=== PATIENT | female | born 1995 | race Caucasian/White ===

== ENCOUNTER 2017-01-12 12:15 | Emergency (ER) | payer MEDICAID, OTHER ==
[~2017-01-12] VITALS: Ht 165.1 cm; Wt 98.5 kg
[2017-01-12 12:19] VITALS: BP 141/82
--- NOTE | 2017-01-12 12:40 | NUR ---
21/F BIB FAMILY C/O N/V/D X 2 DAYS AGO----CAN NOT TOLERATE ANY PO'S , SEVERE N/V & ALSO LOWER BACK PAIN RADIATING TO SUPRAPUBIC, BROWN DISCHARGE. RECENT DX UTI RX CIPRO, MOTRIN,NORCO X 4 DAYS AGO AT [facility] ER. SKIN IS PINK/WARM/DRY; AAOX4 WITH EVEN AND STEADY GAIT; LUNGS CLEAR BL; HR EVEN AND REGULAR; PT DENIES ANY FEVER, CP, SOB, OR COUGH AT THIS TIME; PATIENT STATES PAIN OF 10/10 AT THIS TIME; VSS; PATIENT POSITIONED FOR COMFORT; HOB ELEVATED; BEDRAILS UP X2; BED DOWN. ER MD MADE AWARE OF PT STATUS.
[2017-01-12] MEDS ORDERED: NACL 0.9% 1,000 ML IV SCH (13:01)
[2017-01-12] MEDS ORDERED: ONDANSETRON 4 MG/2 ML VIAL IVP ONE (13:05)
--- NOTE | 2017-01-12 13:26 | NUR ---
PT WENT TO CT.
--- NOTE | 2017-01-12 13:26 | NUR ---
Antonio stahl in [facility] - 01/12/17 at 1344 by MED1 PT TO X-RAY
--- NOTE | 2017-01-12 13:33 | NUR ---
US AT BEDSIDE.
--- NOTE | 2017-01-12 13:43 | NUR ---
PT STS PAIN 6/10 AT THIS TIME.
[2017-01-12 14:04] LABS: BASOPHILS # (AUTO) 0.3 K/uL (0.00-0.22); EOSINOPHILS # (AUTO) 0.1 K/uL (0-0.4); HEMATOCRIT 41.8 % (36-48); HEMOGLOBIN 13.5 g/dL (12.0-16.0); LYMPHOCYTES # (AUTO) 2.5 K/uL (2.5-16.5); MEAN CORPUSCULAR HEMOGLOBIN 26 pg (27-31); MEAN CORPUSCULAR HGB CONC 32 g/dL (33-37); MEAN CORPUSCULAR VOLUME 82 fL (80-94); MONOCYTES # (AUTO) 0.5 K/uL (0.8-1.0); NEUTROPHILS # (AUTO) 8.6 K/uL (1.8-7.7); PLATELET COUNT (AUTO) 346 K/uL (140-450); RED BLOOD CELL COUNT(AUTO) 5.11 MIL/uL (4.20-5.40)
--- NOTE | 2017-01-12 14:14 | NUR ---
Patient appears to be resting comfortably in bed. Vital Signs within normal limits. Respirations even and unlabored.WILL CONTINUE TO MONITOR.
[2017-01-12 14:22] LABS: ANION GAP 14.4 (8-16); CARBON DIOXIDE 24.4 mmol/L (21-32); CREATININE 1.3 mg/dL (0.6-1.3); POTASSIUM 3.8 mmol/L (3.5-5.1)
[2017-01-12 14:27] LABS: ALBUMIN 3.8 g/dL (3.4-5.0); TOTAL BILIRUBIN 0.6 mg/dL (0.0-1.0)
[2017-01-12 15:19] LABS: APPEARANCE,URINE HAZY (CLEAR); BILIRUBIN,URINE NEGATIVE (NEGATIVE); BLOOD, URINE 2+ (NEGATIVE); COLOR,URINE YELLOW (YELLOW); LEUKOCYTE ESTERASE ,URINE 1+ (NEGATIVE); NITRITE, URINE NEGATIVE (NEGATIVE); UGLUCOSE NEGATIVE (NEGATIVE)
--- NOTE | 2017-01-12 15:50 | NUR ---
PT STS PAIN 3/10 AT THIS TIME.
--- NOTE | 2017-01-12 16:00 | NUR ---
IV removed, catheter intact and site benign. Applied folded 4x4 gauze and tape to stop bleeding.
[2017-01-12 16:05] VITALS: BP 119/71
--- NOTE | 2017-01-12 16:05 | NUR ---
Patient discharged with v/s stable. Written and verbal after care instructions given and explained. Patient alert, oriented and verbalized understanding of instructions. Ambulatory with steady gait. All questions addressed prior to discharge. ID band removed. Patient advised to follow up with PMD. Rx of ZOFRAN ODT & IMODIUM A D given. Patient educated on indication of medication including possible reaction and side effects. Opportunity to ask questions provided and answered.
== END 2017-01-12 16:05 | disposition home or self-care (01) ==
LOC: MED 12:15
DX: K52.9 Noninfective gastroenteritis and colitis, unspecified (principal); N39.0 Urinary tract infection, site not specified; Z91.040 Latex allergy status
CPT/HCPCS: 36415; 74176; 76705; 80053; 81001; 81025; 82150; 83690; 84703; 85025; 87086; 96361; 96374; 99285; J2405; J7030; Q0092

== ENCOUNTER 2017-01-18 14:28 | Emergency (ER) | payer OTHER ==
[~2017-01-18] VITALS: Ht 152.4 cm; Wt 97.6 kg
[2017-01-18 14:34] VITALS: BP 128/91
--- NOTE | 2017-01-18 14:38 | NUR ---
Patient ambulated to bed 3. RN evaluating patient at bedside.
--- NOTE | 2017-01-18 14:45 | NUR ---
PATIENT BIB SELF C/O VAGINAL BLEEDING X 3 DAYS, WITH "MEDIUM CLOT-LIKE BALL" DISCHARGED X THIS MORNING.PT STATES THE CLOT IS HARD AND SINCE IT CAME OFF SHE STOPS BLEEDING. PT ALSO STATES SHE FEELS DIZZY AND HAS BLURRY OF VISSION;DENIES N/V/D; SKIN IS PINK/WARM/DRY; AAOX4 WITH EVEN AND STEADY GAIT; LUNGS CLEAR BL; HR EVEN AND REGULAR; PT DENIES ANY FEVER, CP, SOB, OR COUGH AT THIS TIME; PATIENT STATES PAIN OF 8/10 AT THIS TIME;PATIENT POSITIONED FOR COMFORT; HOB ELEVATED; BEDRAILS UP X2; ALL MONITORS IN PLACED;BED DOWN. ER MD MADE AWARE OF PT STATUS.
--- NOTE | 2017-01-18 14:50 | NUR ---
Dr. Vail evaluating patient at bedside.
--- NOTE | 2017-01-18 15:13 | NUR ---
Pelvic exam performed by DR LOPEZ with TERESA CODY at bedside for entire examination. Patient tolerated procedure well. Patient assisted to position of comfort after examination.
[2017-01-18 15:21] LABS: BASOPHILS # (AUTO) 0.3 K/uL (0.00-0.22); BASOPHILS % (AUTO) 2.8 % (0.0-2.0); EOSINOPHILS # (AUTO) 0.1 K/uL (0-0.4); EOSINOPHILS % (AUTO) 1.2 % (0.0-4.0); HEMATOCRIT 40.3 % (36-48); LYMPHOCYTES # (AUTO) 2.4 K/uL (2.5-16.5); LYMPHOCYTES % (AUTO) 25.1 % (20.5-51.1); MEAN CORPUSCULAR HEMOGLOBIN 26 pg (27-31); MEAN CORPUSCULAR HGB CONC 32 g/dL (33-37); MEAN CORPUSCULAR VOLUME 81 fL (80-94); MONOCYTES # (AUTO) 0.6 K/uL (0.8-1.0); MONOCYTES % (AUTO) 6.2 % (1.7-9.3); NEUTROPHILS % (AUTO) 64.7 % (42.2-75.2); PLATELET COUNT (AUTO) 346 K/uL (140-450); RED BLOOD CELL COUNT(AUTO) 4.95 MIL/uL (4.20-5.40); RED CELL DISTRIBUTION WIDTH 12.9 % (11.6-13.7); WHITE BLOOD COUNT (AUTO) 9.4 K/uL (4.8-10.8)
[2017-01-18 15:33] LABS: APPEARANCE,URINE CLEAR (CLEAR); BILIRUBIN,URINE NEGATIVE (NEGATIVE); BLOOD, URINE 3+ (NEGATIVE); COLOR,URINE YELLOW (YELLOW); LEUKOCYTE ESTERASE ,URINE NEGATIVE (NEGATIVE); NITRITE, URINE NEGATIVE (NEGATIVE); PH,URINE 6.5 (5.0-9.0); UGLUCOSE NEGATIVE (NEGATIVE)
[2017-01-18 15:34] LABS: RBC,URINE 80-100 /HPF (0-5); WBC,URINE 0-5 (RARE) /HPF (0-5)
[2017-01-18 15:34] LABS: ANION GAP 15.3 (8-16); CARBON DIOXIDE 24.1 mmol/L (21-32); POTASSIUM 3.4 mmol/L (3.5-5.1)
--- NOTE | 2017-01-18 15:41 | NUR ---
pt resting on bed; no acute distress noted;will continue to monitor pt.
--- NOTE | 2017-01-18 16:20 | NUR ---
US at bedside.
--- NOTE | 2017-01-18 16:33 | NUR ---
pt went to the restroom.
[2017-01-18 17:29] VITALS: BP 111/69
--- NOTE | 2017-01-18 17:29 | NUR ---
Patient discharged with v/s stable. Written and verbal after care instructions given and explained. Patient verbalized understanding. Ambulatory with steady gait. All questions addressed prior to discharge. Advised to follow up with PMD.
== END 2017-01-18 17:29 | disposition home or self-care (01) ==
LOC: MED 14:28
DX: N93.8 Other specified abnormal uterine and vaginal bleeding (principal); R10.30 Lower abdominal pain, unspecified; Z91.040 Latex allergy status
CPT/HCPCS: 36415; 76856; 80048; 81001; 81025; 84702; 85025; 99285

== ENCOUNTER 2017-07-22 14:48 | Emergency (ER) | payer OTHER ==
[~2017-07-22] VITALS: Ht 162.6 cm; Wt 101.6 kg
[2017-07-22 14:51] VITALS: BP_SYST 124; BP_SYST 138; BP_DIAS 119; BP_DIAS 79
--- NOTE | 2017-07-22 15:29 | NUR ---
PATIENT AMBULATED TO BED 3 AT THIS TIME.
--- NOTE | 2017-07-22 16:18 | NUR ---
PATIENT PRESENTS TO ED WITH 3 days of headache occipital region and mid to lower back pain . PT STATES . DENIES N/V/D; SKIN IS PINK/WARM/DRY; AAOX4 WITH EVEN AND STEADY GAIT; LUNGS CLEAR BL; HR EVEN AND REGULAR; PT DENIES ANY FEVER, CP, SOB, OR COUGH AT THIS TIME; PATIENT STATES PAIN OF 8/10 AT THIS TIME; VSS; PATIENT POSITIONED FOR COMFORT; HOB ELEVATED; BEDRAILS UP X2; BED DOWN. ER MD MADE AWARE OF PT STATUS.
[2017-07-22] MEDS ORDERED: HYDROmorphone 1 MG/ML AMP IM ONE (17:25)
[2017-07-22] MEDS ORDERED: KETOROLAC 60 MG/2 ML VIAL IM ONE (17:25)
[2017-07-22] MEDS ORDERED: HYDROmorphone PFS 2 MG/ML SYR ONE (17:51)
--- NOTE | 2017-07-22 17:56 | NUR ---
C/O 01/31 BACK PAIN AND HEADACHE--MEDICATED WRITTEN WILL CONTINUE TO OBSERVE FOR PAIN CONTROL
[2017-07-22 18:36] VITALS: BP 131/78
--- NOTE | 2017-07-22 18:36 | NUR ---
Patient discharged with v/s stable. Written and verbal after care instructions given and explained. Patient alert, oriented and verbalized understanding of instructions. Ambulatory with steady gait. All questions addressed prior to discharge. ID band removed. Patient advised to follow up with PMD. Rx of FIORICET given. Patient educated on indication of medication including possible reaction and side effects. Opportunity to ask questions provided and answered.
[2017-07-22 19:51] LABS: BARBITURATE, URINE POS. ng/ml (NEG <=200); BENZODIAZEPINE, URINE NEG. ng/mL (NEG <=200); CANNABINOID, URINE NEG. ng/mL (NEG <=50); COCAINE, URINE NEG. ng/mL (NEG <=300); OPIATE, URINE NEG. ng/mL (NEG <=2000); PHENCYCLIDINE SCREEN,URINE NEG. ng/mL (NEG <=25)
== END 2017-07-22 18:36 | disposition home or self-care (01) ==
LOC: MED 14:48
DX: G44.209 Tension-type headache, unspecified, not intractable (principal); Z91.040 Latex allergy status
CPT/HCPCS: 70450; 80305; 81002; 81025; 96372; 99285; J1170; J1885

== ENCOUNTER 2017-12-06 18:55 | Emergency (ER) | payer MEDICAID, OTHER ==
[~2017-12-06] VITALS: Ht 162.6 cm; Wt 101.8 kg
[2017-12-06 19:05] VITALS: BP 128/66
--- NOTE | 2017-12-06 19:21 | NUR ---
22/F CAME IN ED, C/O 03/02 SHARP, CONSTANT LOWER BACK PAIN, RADIATING TO PELVIC/LOWER ABD, X3 DAYS. PT REPORTS ROMAN. PT REPORTS TAKING TYLENOL WITH NO RELIEF. PT DENIES TRAUMA. PT DENIES N/V/D; SKIN IS INTACT, PINK/WARM/DRY; AAOX4, PERRL, WITH EVEN AND STEADY GAIT; LUNGS CLEAR BL, BREATHING UNLABORED; HR EVEN AND REGULAR, BL PERIPHERAL PULSES PRESENT; BS ACTIVE X4, TENDERNESS TO PALPATION; PT DENIES ANY FEVER, CP, SOB, OR COUGH AT THIS TIME; VSS; PATIENT POSITIONED FOR COMFORT; HOB ELEVATED; BEDRAILS UP X2; BED DOWN. ER MD MADE AWARE
[2017-12-06] MEDS ORDERED: KETOROLAC 30 MG/ML VIAL IM ONE (19:50)
--- NOTE | 2017-12-06 20:00 | NUR ---
Pt taken to CT
[2017-12-06 20:29] LABS: BASOPHILS % (AUTO) 0.2 % (0.0-2.0); EOSINOPHILS # (AUTO) 0.1 K/uL (0-0.4); EOSINOPHILS % (AUTO) 0.7 % (0.0-4.0); HEMATOCRIT 41.1 % (36-48); HEMOGLOBIN 12.9 g/dL (12.0-16.0); LYMPHOCYTES # (AUTO) 2.8 K/uL (2.5-16.5); MEAN CORPUSCULAR HEMOGLOBIN 26 pg (27-31); MEAN CORPUSCULAR HGB CONC 31 g/dL (33-37); MEAN CORPUSCULAR VOLUME 81.8 fL (80-94); MONOCYTES # (AUTO) 0.6 K/uL (0.8-1.0); MONOCYTES % (AUTO) 5.7 % (1.7-9.3); NEUTROPHILS # (AUTO) 6.6 K/uL (1.8-7.7); NEUTROPHILS % (AUTO) 65.4 % (42.2-75.2); PLATELET COUNT (AUTO) 360 K/uL (140-450); RED BLOOD CELL COUNT(AUTO) 5.03 MIL/uL (4.20-5.40); RED CELL DISTRIBUTION WIDTH 14.3 % (11.6-13.7); WHITE BLOOD COUNT (AUTO) 10.2 K/uL (4.8-10.8)
[2017-12-06 20:56] VITALS: BP 128/66
--- NOTE | 2017-12-06 20:57 | NUR ---
Patient discharged with v/s stable. Written and verbal after care instructions given and explained. Patient alert, oriented and verbalized understanding of instructions. Ambulatory with steady gait. All questions addressed prior to discharge. ID band removed. Patient advised to follow up with PMD. Rx of Naproxen and Mccloud given. Patient educated on indication of medication including possible reaction and side effects. Opportunity to ask questions provided and answered. Patient given referral for EMERG[employer]Y [employer]ETER[employer]IST[employer] ALEX Kim.
== END 2017-12-06 20:57 | disposition home or self-care (01) ==
LOC: MED 18:55
DX: R10.2 Pelvic and perineal pain (principal); M54.5 Low back pain; R51 Headache; Z91.040 Latex allergy status
CPT/HCPCS: 36415; 74176; 81002; 81025; 85025; 96372; 99285; J1885

== ENCOUNTER 2018-02-16 11:53 | Emergency (ER) | payer MEDICAID, OTHER ==
[~2018-02-16] VITALS: Ht 162.6 cm; Wt 101.6 kg
[2018-02-16 11:59] VITALS: BP 136/85
[2018-02-16] MEDS: LIDOCAINE 1% 500 MG/50 ML VIAL INJ SCH (13:31)
[2018-02-16] MEDS: IBUPROFEN 400 MG TAB PO ONE (13:31)
[2018-02-16 14:21] VITALS: BP 132/84
== END 2018-02-16 14:21 | disposition home or self-care (01) ==
LOC: MED 11:53
DX: M54.6 Pain in thoracic spine (principal); R10.32 Left lower quadrant pain; R25.2 Cramp and spasm; Z91.040 Latex allergy status
CPT/HCPCS: 20552; 81002; 81025; 99284

== ENCOUNTER 2018-02-17 20:12 | Emergency (ER) | payer OTHER ==
[~2018-02-17] VITALS: Ht 162.6 cm; Wt 104.3 kg
[2018-02-17 20:15] VITALS: BP 146/97
--- NOTE | 2018-02-17 20:18 | NUR ---
PT AMBULATORY TO ER LOBBY W/ STEADY GAIT IN STABLE CONDITION.
--- NOTE | 2018-02-17 21:39 | NUR ---
pt amb w/o asst to er bed 4
--- NOTE | 2018-02-17 21:42 | NUR ---
PATIENT AMBULATED TO ED BED 4. PT C/O LOW BACK PAIN 10/ X 3 DAYS, NO OTHER COMPLAINTS, DENIES INJURY. AMBULATES STEADILY. AREA IS -SWELLING, ERYTHEMA, DENIES INJURY. DENIES CP/SOB AT THIS TIME.
[2018-02-17] MEDS ORDERED: KETOROLAC 60 MG/2 ML VIAL IM ONE (22:55)
--- NOTE | 2018-02-17 23:06 | NUR ---
PT RETURN FROM RAD
--- NOTE | 2018-02-17 23:21 | NUR ---
Dr. Garcias evaluating patient at bedside.
[2018-02-17 23:23] VITALS: BP 127/88
--- NOTE | 2018-02-17 23:24 | NUR ---
Patient discharged with v/s stable. Written and verbal after care instructions given and explained. Patient alert, oriented and verbalized understanding of instructions. Ambulatory with steady gait. All questions addressed prior to discharge. ID band removed. Patient advised to follow up with PMD. Rx of motrin tramadol and robaxin given. Patient educated on indication of medication including possible reaction and side effects. Opportunity to ask questions provided and answered.
== END 2018-02-17 23:24 | disposition home or self-care (01) ==
LOC: MED 20:12
DX: M54.5 Low back pain (principal); R19.7 Diarrhea, unspecified; Z91.040 Latex allergy status
CPT/HCPCS: 72100; 81002; 81025; 96372; 99284; J1885

== ENCOUNTER 2018-04-06 21:38 | Emergency (ER) | payer OTHER ==
[~2018-04-06] VITALS: Ht 162.6 cm; Wt 106.7 kg
[2018-04-06 21:44] VITALS: BP 143/86
[2018-04-06] MEDS ORDERED: KETOROLAC 60 MG/2 ML VIAL IM ONE (22:20)
[2018-04-06 22:40] VITALS: BP 139/82
== END 2018-04-06 22:40 | disposition home or self-care (01) ==
LOC: MED 21:38
DX: N39.0 Urinary tract infection, site not specified (principal); R05 Cough; Z91.040 Latex allergy status
CPT/HCPCS: 81002; 81025; 96372; 99283; J1885

== ENCOUNTER 2018-04-26 16:58 | Emergency (ER) | payer OTHER ==
[~2018-04-26] VITALS: Ht 165.1 cm; Wt 106.8 kg
[2018-04-26 17:02] VITALS: BP 134/97
--- NOTE | 2018-04-26 17:13 | NUR ---
PT AMBULATES W/ STEADY GAIT AND VSS TO LOBBY TO WAIT FOR AVAILABLE BED AFTER PROVIDING URINE SAMPLE.
--- NOTE | 2018-04-26 18:44 | NUR ---
PT AMBULATED TO ER BED 5
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
[2018-04-26] MEDS ORDERED: KETOROLAC 60 MG/2 ML VIAL IM ONE (19:40)
[2018-04-26] MEDS ORDERED: DIAZEPAM 5 MG TAB PO ONE (19:40)
[2018-04-26] MEDS ORDERED: HYDROcodone/APAP 5/325 MG 1 TAB TAB PO ONE (19:40)
--- NOTE | 2018-04-26 20:01 | NUR ---
TO XRAY VIA WC
--- NOTE | 2018-04-26 20:14 | NUR ---
PT RETURN FROM XRAY
[2018-04-26 20:36] VITALS: BP 129/89
--- NOTE | 2018-04-26 20:36 | NUR ---
Patient discharged with v/s stable. Written and verbal after care instructions given and explained. Patient alert, oriented and verbalized understanding of instructions. Ambulatory with steady gait. All questions addressed prior to discharge. ID band removed. Patient advised to follow up with PMD. Rx of NAPROSYN, VALIUM given. Patient educated on indication of medication including possible reaction and side effects. Opportunity to ask questions provided and answered.
== END 2018-04-26 20:36 | disposition home or self-care (01) ==
LOC: MED 16:58
DX: M54.5 Low back pain (principal); G89.29 Other chronic pain; R10.9 Unspecified abdominal pain; V43.52XA Car driver injured in collision with other type car in traffic accident, initial encounter; Y93.89 Activity, other specified; Y92.411 Interstate highway as the place of occurrence of the external cause; Y99.8 Other external cause status
CPT/HCPCS: 72100; 81025; 96372; 99284; J1885

== ENCOUNTER 2018-05-28 18:21 | Emergency (ER) | payer OTHER ==
[~2018-05-28] VITALS: Ht 167.6 cm; Wt 110.8 kg
[2018-05-28 18:27] VITALS: BP 140/80
--- NOTE | 2018-05-28 18:31 | NUR ---
PT AMBULATES TO BED 12
--- NOTE | 2018-05-28 18:35 | NUR ---
PATIENT PRESENTS TO ED WITH C/O LEFT EAR PAIN X YESTERDAY; DENIES INJURY OR DRAINAGE DENIES N/V/D; SKIN IS PINK/WARM/DRY; AAOX4 WITH EVEN AND STEADY GAIT; LUNGS CLEAR BL; HR EVEN AND REGULAR; PT DENIES ANY FEVER, CP, SOB, OR COUGH AT THIS TIME; PATIENT STATES PAIN OF 8/10 AT THIS TIME; VSS; PATIENT POSITIONED FOR COMFORT; HOB ELEVATED; BEDRAILS UP X2; BED DOWN. ER MD MADE AWARE OF PT STATUS.
--- NOTE | 2018-05-28 19:07 | NUR ---
ASSUMED CARE OF PT FROM [facility] BOB
--- NOTE | 2018-05-28 19:22 | NUR ---
PT L EAR IRRIGATED WITH SOLUTION OF WATER AND HYDROGEN PEROXIDE. APPROXIMATELY 500 ML USED, PT REPORTED FEELING RELIEF AND IMPROVED HEARING FROM AFFECTED EAR. RN MADE AWARE.
--- NOTE | 2018-05-28 19:26 | NUR ---
EAR IRRIGATION IN PROGRESS AT THIS TIME. WILL DISCHARGE PT AFTER COMPLETE.
[2018-05-28 19:35] VITALS: BP 137/82
--- NOTE | 2018-05-28 19:35 | NUR ---
Patient discharged with v/s stable. Written and verbal after care instructions given and explained. Patient alert, oriented and verbalized understanding of instructions. Ambulatory with steady gait. All questions addressed prior to discharge. ID band removed. Patient advised to follow up with PMD. Rx of CORTISPORIN OTIC SUSPENSION given. Patient educated on indication of medication including possible reaction and side effects. Opportunity to ask questions provided and answered.
== END 2018-05-28 19:35 | disposition home or self-care (01) ==
LOC: MED 18:21
DX: H61.22 Impacted cerumen, left ear (principal); Z91.040 Latex allergy status
CPT/HCPCS: 99283

== ENCOUNTER 2018-09-18 18:02 | Emergency (ER) | payer OTHER ==
[~2018-09-18] VITALS: Ht 162.6 cm; Wt 108.9 kg
[2018-09-18 18:06] VITALS: BP 146/77
--- NOTE | 2018-09-18 19:53 | NUR ---
PT WAS CALLED FROM LOBBY, NO RESPONSE, LWBS
--- NOTE | 2018-09-18 20:07 | NUR ---
PT WAS CALLED FOR THE SECOND TIME, NO RESPONSE, LWBS
--- NOTE | 2018-09-18 20:07 | NUR ---
PATIENT LEFT WITHOUT BEING SEEN BY DR. STAPLES. NO FURTHER CARE PROVIDED FOR PATIENT.
== END 2018-09-18 20:07 | disposition left against medical advice (07) ==
LOC: MED 18:02
DX: R51 Headache (principal); M54.5 Low back pain; Z53.21 Procedure and treatment not carried out due to patient leaving prior to being seen by health care provider

== ENCOUNTER 2018-10-04 18:41 | Emergency (ER) | payer OTHER ==
[~2018-10-04] VITALS: Ht 162.6 cm; Wt 106.6 kg
[2018-10-04 19:10] VITALS: BP 135/70
--- NOTE | 2018-10-04 19:13 | NUR ---
TO LOBBY AMBULATORY, CEES
--- NOTE | 2018-10-04 19:39 | NUR ---
PT TAKEN TO BED 3
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
[2018-10-04] MEDS ORDERED: KETOROLAC 30 MG/ML VIAL IM ONE (19:55)
[2018-10-04 20:23] VITALS: BP 122/76
--- NOTE | 2018-10-04 20:26 | NUR ---
DISCHARGE PAPERS GIVEN TO PT. 07/03 PAIN BUT TOLLERABLE. AMBULATORY WITH STEADY GAIT. VSS. RX OF NORCO GIVEN. SIDE EFFECTS EXPLAINED. INSTRUCTED TO F/U WITH PCP AND WHEN TO RETURN TO ER. PT VERBALLIZED UNDERSTANDING OF DC INSTRUCTIONS. ALL QUESTIONS ANSWERED.
== END 2018-10-04 20:26 | disposition home or self-care (01) ==
LOC: MED 18:41
DX: M54.5 Low back pain (principal); Z91.010 Allergy to peanuts; Z88.8 Allergy status to other drugs, medicaments and biological substances
CPT/HCPCS: 81002; 81025; 96372; 99283; J1885

== ENCOUNTER 2018-12-26 16:22 | Emergency (ER) | payer OTHER ==
[~2018-12-26] VITALS: Ht 162.6 cm; Wt 124.3 kg
[2018-12-26 16:25] VITALS: BP 131/91
[2018-12-26] MEDS ORDERED: KETOROLAC 60 MG/2 ML VIAL IM ONE (17:05)
[2018-12-26] MEDS ORDERED: ONDANSETRON 4 MG ODT PO ONE (17:05)
[2018-12-26 18:14] VITALS: BP 127/78
== END 2018-12-26 18:13 | disposition home or self-care (01) ==
LOC: MED 16:22
DX: R10.30 Lower abdominal pain, unspecified (principal); R11.2 Nausea with vomiting, unspecified; R42 Dizziness and giddiness
CPT/HCPCS: 81002; 81025; 96372; 99283; J1885; Q0162

== ENCOUNTER 2019-05-25 10:50 | Emergency (ER) | payer OTHER ==
[~2019-05-25] VITALS: Ht 162.6 cm; Wt 113.9 kg
[2019-05-25 11:00] VITALS: BP 155/84
--- NOTE | 2019-05-25 11:17 | NUR ---
C/O COUGH AND HEADACHE W N/V X1 WEEK. DENIES FEVER. PT STATES SHE HAS NOT HAD A PERIOD SINCE 04/02/19 AND WOULD LIKE TO BE BLOOD TESTED BECAUSE HER HOME PREG TESTS ALWAYS READ "INVALID" HX: CHRONIC BACK PAIN RX: NORCO, FLEXERIL. SKIN IS PINK/WARM/DRY; AAOX4 WITH EVEN AND STEADY GAIT; LUNGS CLEAR BL; HR EVEN AND REGULAR; PT DENIES ANY FEVER, CP, SOB, AT THIS TIME; PATIENT STATES PAIN OF 7/10 AT THIS TIME; VSS; PATIENT POSITIONED FOR COMFORT; HOB ELEVATED; BEDRAILS UP X2; BED DOWN. ER MD MADE AWARE OF PT STATUS.
--- NOTE | 2019-05-25 11:18 | NUR ---
OFFERED PT URINE CUP FOR TEST. NOTIFIED DR. TRAVIS WANTS TO DO BLOOD TEST FOR .
--- NOTE | 2019-05-25 12:04 | NUR ---
NOTIFIED PT URINE NEGTIVE. PT STILL WANTS TO DO BLOOD HCG. NOTIFIED . STATED IT IS NOT NECESSARY AT THIS TIME.
--- NOTE | 2019-05-25 13:54 | NUR ---
Patient discharged with v/s stable. Written and verbal after care instructions given and explained. Patient alert, oriented and verbalized understanding of instructions. Ambulatory with steady gait. All questions addressed prior to discharge. ID band removed. Patient advised to follow up with PMD. Rx of PREDNISONE, ZOFRAN given. Patient educated on indication of medication including possible reaction and side effects. Opportunity to ask questions provided and answered.
[2019-05-25 13:55] VITALS: BP 147/81
== END 2019-05-25 13:54 | disposition home or self-care (01) ==
LOC: MED 10:50
DX: R05 Cough (principal); R11.2 Nausea with vomiting, unspecified; Z88.8 Allergy status to other drugs, medicaments and biological substances; Z91.040 Latex allergy status
CPT/HCPCS: 36415; 81002; 81025; 84702; 99283

== ENCOUNTER 2019-08-16 13:19 | Emergency (ER) | payer OTHER ==
[~2019-08-16] VITALS: Ht 162.6 cm; Wt 113.4 kg
[2019-08-16 13:34] VITALS: BP 138/78
[2019-08-16 14:23] VITALS: BP 134/89
== END 2019-08-16 14:23 | disposition home or self-care (01) ==
LOC: MED 13:19
DX: S63.8X2A Sprain of other part of left wrist and hand, initial encounter (principal); Z91.040 Latex allergy status; Z88.8 Allergy status to other drugs, medicaments and biological substances; W01.0XXA Fall on same level from slipping, tripping and stumbling without subsequent striking against object, initial encounter; Y93.01 Activity, walking, marching and hiking; Y92.89 Other specified places as the place of occurrence of the external cause; Y99.8 Other external cause status
CPT/HCPCS: 73130; 99283

== ENCOUNTER 2019-09-27 19:12 | Emergency (ER) | payer OTHER ==
[~2019-09-27] VITALS: Ht 162.6 cm; Wt 114.3 kg
[2019-09-27 19:23] VITALS: BP 118/72
[2019-09-27 20:30] LABS: APPEARANCE,URINE CLOUDY (CLEAR); BILIRUBIN,URINE 1+ (NEGATIVE); BLOOD, URINE 3+ (NEGATIVE); COLOR,URINE RED (YELLOW); LEUKOCYTE ESTERASE ,URINE TRACE (NEGATIVE); NITRITE, URINE POSITIVE (NEGATIVE); PH,URINE 6.5 (5.0-9.0); UGLUCOSE NEGATIVE (NEGATIVE)
[2019-09-27 20:37] LABS: RBC,URINE TOO NUMEROUS TO COUN /HPF (0-5)
[2019-09-27 21:04] LABS: BASOPHILS % (AUTO) 0.3 % (0.0-2.0); EOSINOPHILS # (AUTO) 0.1 K/uL (0-0.4); EOSINOPHILS % (AUTO) 0.9 % (0.0-4.0); HEMATOCRIT 40.9 % (36-48); HEMOGLOBIN 13.1 g/dL (12.0-16.0); LYMPHOCYTES # (AUTO) 3.2 K/uL (2.5-16.5); MEAN CORPUSCULAR HEMOGLOBIN 27 pg (27-31); MEAN CORPUSCULAR HGB CONC 32 g/dL (33-37); MEAN CORPUSCULAR VOLUME 83.6 fL (80-94); MONOCYTES # (AUTO) 0.5 K/uL (0.8-1.0); MONOCYTES % (AUTO) 5.2 % (1.7-9.3); NEUTROPHILS # (AUTO) 6.7 K/uL (1.8-7.7); NEUTROPHILS % (AUTO) 63.6 % (42.2-75.2); PLATELET COUNT (AUTO) 363 K/uL (140-450); RED BLOOD CELL COUNT(AUTO) 4.89 MIL/uL (4.20-5.40); RED CELL DISTRIBUTION WIDTH 14.5 % (11.6-13.7); WHITE BLOOD COUNT (AUTO) 10.5 K/uL (4.8-10.8)
[2019-09-27 21:19] LABS: ALBUMIN 3.4 g/dL (3.4-5.0); ANION GAP 14.2 (8-16); CARBON DIOXIDE 26.8 mmol/L (21-32); CREATININE 0.8 mg/dL (0.6-1.3); TOTAL BILIRUBIN 0.1 mg/dL (0.0-1.0)
[2019-09-27] MEDS ORDERED: medroxyPROGESTERone 10 MG TAB PO SCH (22:05)
[2019-09-27 22:50] VITALS: BP 123/73
== END 2019-09-27 22:50 | disposition home or self-care (01) ==
LOC: MED 19:12
DX: N93.9 Abnormal uterine and vaginal bleeding, unspecified (principal); Z91.040 Latex allergy status; Z88.4 Allergy status to anesthetic agent
CPT/HCPCS: 36415; 76830; 80053; 81001; 81025; 84702; 85025; 86886; 86900; 86901; 87086; 99284; Q0092

== ENCOUNTER 2020-02-01 14:46 | Emergency (ER) | payer OTHER ==
[~2020-02-01] VITALS: Ht 162.6 cm; Wt 107.5 kg
[2020-02-01 15:00] VITALS: BP 140/86
[2020-02-01] MEDS ORDERED: ONDANSETRON 4 MG/2 ML VIAL IVP ONE (15:30)
[2020-02-01] MEDS ORDERED: NACL 0.9% 1,000 ML IV ONE (15:30)
[2020-02-01] MEDS ORDERED: METOCLOPRAMIDE 10 MG/2 ML INJ VIAL IVP ONE (15:40)
[2020-02-01 15:41] LABS: APPEARANCE,URINE CLEAR (CLEAR); BILIRUBIN,URINE NEGATIVE (NEGATIVE); BLOOD, URINE NEGATIVE (NEGATIVE); COLOR,URINE YELLOW (YELLOW); LEUKOCYTE ESTERASE ,URINE 1+ (NEGATIVE); NITRITE, URINE NEGATIVE (NEGATIVE); PH,URINE 8.5 (5.0-9.0); UGLUCOSE NEGATIVE (NEGATIVE)
[2020-02-01 16:06] LABS: BASOPHILS # (AUTO) 0.1 K/uL (0.00-0.22); BASOPHILS % (AUTO) 0.5 % (0.0-2.0); EOSINOPHILS # (AUTO) 0.1 K/uL (0-0.4); EOSINOPHILS % (AUTO) 0.6 % (0.0-4.0); HEMOGLOBIN 11.9 g/dL (12.0-16.0); LYMPHOCYTES # (AUTO) 2.5 K/uL (2.5-16.5); LYMPHOCYTES % (AUTO) 21.5 % (20.5-51.1); MEAN CORPUSCULAR HEMOGLOBIN 26 pg (27-31); MEAN CORPUSCULAR HGB CONC 32 g/dL (33-37); MEAN CORPUSCULAR VOLUME 80.5 fL (80-94); MONOCYTES # (AUTO) 0.5 K/uL (0.8-1.0); MONOCYTES % (AUTO) 4.7 % (1.7-9.3); NEUTROPHILS # (AUTO) 8.4 K/uL (1.8-7.7); NEUTROPHILS % (AUTO) 72.7 % (42.2-75.2); PLATELET COUNT (AUTO) 438 K/uL (140-450); RED CELL DISTRIBUTION WIDTH 14.5 % (11.6-13.7); WHITE BLOOD COUNT (AUTO) 11.6 K/uL (4.8-10.8)
[2020-02-01 16:10] LABS: RBC,URINE 0-5 /HPF (0-5)
[2020-02-01 16:14] LABS: ANION GAP 13.1 (8-16); CARBON DIOXIDE 23.7 mmol/L (21-32); CREATININE 0.6 mg/dL (0.6-1.3); POTASSIUM 3.8 mmol/L (3.5-5.1)
[2020-02-01 16:19] LABS: TOTAL BILIRUBIN 0.2 mg/dL (0.0-1.0)
[2020-02-01 17:35] VITALS: BP 133/81
== END 2020-02-01 17:36 | disposition home or self-care (01) ==
LOC: MED 14:46
DX: O23.41 Unspecified infection of urinary tract in pregnancy, first trimester (principal); O21.9 Vomiting of pregnancy, unspecified; Z3A.10 10 weeks gestation of pregnancy; Z91.040 Latex allergy status; Z88.4 Allergy status to anesthetic agent
CPT/HCPCS: 36415; 80053; 81001; 81025; 85025; 87086; 96361; 96374; 99283; J2765; J7030; J2405

== ENCOUNTER 2021-09-26 08:39 | Emergency (ER) | payer OTHER ==
[~2021-09-26] VITALS: Ht 162.6 cm; Wt 116.3 kg
[2021-09-26 08:41] VITALS: BP 137/95
[2021-09-26] MEDS ORDERED: NAPR-1704 PO (09:04)
[2021-09-26 09:08] VITALS: BP 137/95
== END 2021-09-26 09:08 | disposition home or self-care (01) ==
LOC: MED 08:39
DX: M54.12 Radiculopathy, cervical region (principal); R25.2 Cramp and spasm; Z91.040 Latex allergy status; Z88.4 Allergy status to anesthetic agent
CPT/HCPCS: 81002; 81025; 99282

== ENCOUNTER 2021-12-03 14:37 | Emergency (ER) | payer OTHER ==
[~2021-12-03] VITALS: Ht 162.6 cm; Wt 117.9 kg
[~2021-12-03 14:37] MED LIST: NAPR-1704 PO
[2021-12-03 14:45] VITALS: BP 147/96
--- NOTE | 2021-12-03 15:50 | NUR ---
26 y/o F BIB self from home c/o epigastric and low pelvic pain x 3 days. Patient states epigastric and LUQ pain, 7/10, sharp/stabbing/constant, that radiates to low pelvic region. Pt reports onset of nausea and vomiting this AM. Denies diarrhea, dysuria, urinary symptoms, chest pain, constipation. Denies medications prior to arrival. VSS. Bed locked in lowest position, side rails x 1. LMP: 11/10/2021. PMH/Sx/Meds: denies Allergies: lidocaine
[2021-12-03] MEDS: ONDANSETRON 4 MG ODT PO ONE (16:09)
[2021-12-03] MEDS: KETOROLAC 60 MG/2 ML VIAL IM ONE (16:09)
[2021-12-03] MEDS ORDERED: ONDA8TAB87 PO (17:04)
[2021-12-03] MEDS ORDERED: IBUP-2213 PO (17:04)
[2021-12-03] MEDS ORDERED: LOPE-289 PO (17:04)
[2021-12-03 17:10] VITALS: BP 123/57
--- NOTE | 2021-12-03 17:13 | NUR ---
Patient discharged with v/s stable. Written and verbal after care instructions given and explained. Patient alert, oriented and verbalized understanding of instructions. Ambulatory with steady gait. All questions addressed prior to discharge. ID band removed. Patient advised to follow up with PMD. Rx of Zofran, imodium, Ibuprofen given. Patient educated on indication of medication including possible reaction and side effects. Opportunity to ask questions provided and answered.
== END 2021-12-03 17:13 | disposition home or self-care (01) ==
LOC: MED 14:37
DX: R10.13 Epigastric pain (principal); R11.2 Nausea with vomiting, unspecified; R19.7 Diarrhea, unspecified; Z88.4 Allergy status to anesthetic agent; Z91.040 Latex allergy status; Z98.890 Other specified postprocedural states
CPT/HCPCS: 81002; 81025; 96372; 99283; J1885; Q0162

== ENCOUNTER 2022-09-23 08:31 | Emergency (ER) | payer OTHER ==
[~2022-09-23] VITALS: Ht 162.6 cm; Wt 115.7 kg
[~2022-09-23 08:31] MED LIST changes: +IBUP-2213 PO; +LOPE-289 PO; +ONDA8TAB87 PO
[2022-09-23 08:51] VITALS: BP 124/78
--- NOTE | 2022-09-23 09:18 | NUR ---
27 YO FEMALE. C/O 03/02 ABDOMINAL PAIN WORSENING WITH MOVEMENT WITH NAUSEA AND VOMITING. PAIN AND VOMITING STARTED ON WEDNESDAY. SEEN IN [facility] 09/22/[address] SCAN AND BLOOD WORK. DENIES PMH
[2022-09-23] MEDS ORDERED: KETOROLAC 30 MG/ML VIAL IVP ONE (09:50)
[2022-09-23 10:15] LABS: BASOPHILS % (AUTO) 0.2 % (0.0-2.0); EOSINOPHILS # (AUTO) 0.1 K/uL (0-0.4); EOSINOPHILS % (AUTO) 1.6 % (0.0-4.0); HEMATOCRIT 39.3 % (36-48); HEMOGLOBIN 12.5 g/dL (12.0-16.0); LYMPHOCYTES # (AUTO) 2.1 K/uL (2.5-16.5); LYMPHOCYTES % (AUTO) 29.4 % (20.5-51.1); MEAN CORPUSCULAR HEMOGLOBIN 25 pg (27-31); MEAN CORPUSCULAR HGB CONC 32 g/dL (33-37); MEAN CORPUSCULAR VOLUME 76.8 fL (80-94); MONOCYTES # (AUTO) 0.4 K/uL (0.8-1.0); MONOCYTES % (AUTO) 5.7 % (1.7-9.3); NEUTROPHILS # (AUTO) 4.4 K/uL (1.8-7.7); NEUTROPHILS % (AUTO) 63.1 % (42.2-75.2); PLATELET COUNT (AUTO) 410 K/uL (140-450); RED BLOOD CELL COUNT(AUTO) 5.11 MIL/uL (4.20-5.40); RED CELL DISTRIBUTION WIDTH 16.2 % (11.6-13.7)
[2022-09-23] MEDS ORDERED: IBUP-2213 PO (10:20)
[2022-09-23 10:22] LABS: ALBUMIN 3.4 g/dL (3.4-5.0); ANION GAP 12.3 (8-16); CARBON DIOXIDE 26.4 mmol/L (21-32); CREATININE 0.7 mg/dL (0.6-1.3); POTASSIUM 3.7 mmol/L (3.5-5.1); TOTAL BILIRUBIN 0.2 mg/dL (0.0-1.0)
[2022-09-23] MEDS ORDERED: SUCR1TAB35 PO (10:39)
[2022-09-23] MEDS ORDERED: FAMO-90 PO (10:39)
[2022-09-23] MEDS ORDERED: ALUM355S5 PO (10:39)
== END 2022-09-23 10:43 | disposition home or self-care (01) ==
LOC: MED 08:31
DX: K29.70 Gastritis, unspecified, without bleeding (principal); Z79.899 Other long term (current) drug therapy; Z79.1 Long term (current) use of non-steroidal anti-inflammatories (NSAID); Z91.040 Latex allergy status; Z88.4 Allergy status to anesthetic agent
CPT/HCPCS: 36415; 76705; 80053; 81025; 83690; 85025; 96374; 99285; J1885; Q0092

== ENCOUNTER 2022-12-18 18:08 | Emergency (ER) | payer OTHER ==
[~2022-12-18] VITALS: Ht 162.6 cm; Wt 115.7 kg
[~2022-12-18 18:08] MED LIST changes: +ALUM355S5 PO; +FAMO-90 PO; +SUCR1TAB35 PO
[2022-12-18 18:18] VITALS: BP 134/74; PULSE 87; RESP 18; TEMP 98; O2SAT 99
[2022-12-18] MEDS ORDERED: NAPR-54 PO (19:47)
[2022-12-18 19:50] VITALS: BP 134/74; PULSE 87; RESP 18; TEMP 98; O2SAT 99
--- NOTE | 2022-12-18 19:50 | NUR ---
Patient discharged with v/s stable. Written and verbal after care instructions given and explained. New rx naproxen. Patient verbalized understanding. Ambulatory with steady gait. All questions addressed prior to discharge. Advised to follow up with PMD.
== END 2022-12-18 19:50 | disposition home or self-care (01) ==
LOC: MED 18:08
DX: M94.0 Chondrocostal junction syndrome [Tietze] (principal); Z91.040 Latex allergy status; Z88.4 Allergy status to anesthetic agent; Z79.899 Other long term (current) drug therapy
CPT/HCPCS: 93005; 99283